=== PATIENT | male | born 1985 | race Caucasian/White ===

== ENCOUNTER 2020-01-17 12:54 | Emergency (ER) | payer MEDICAID ==
[~2020-01-17] VITALS: Ht 180.3 cm; Wt 88.5 kg
[2020-01-17 13:15] VITALS: BP_SYST 148
[2020-01-17] MEDS ORDERED: LIDOCAINE 1% 10 MG/ML, 20 ML MDV INJ ONE (14:30)
[2020-01-17 14:54] VITALS: BP_SYST 148
== END 2020-01-17 14:52 | disposition home or self-care (01) ==
LOC: SED 12:54
DX: L02.31 Cutaneous abscess of buttock (principal)
CPT/HCPCS: 10060; 99284; J2001